=== PATIENT | female | born 1965 | race Caucasian/White ===

== ENCOUNTER 2017-12-25 09:27 | Day surgery (SDC) | payer OTHER ==
[~2017-12-25 09:27] MED LIST: ATROPINE 1 MG/10 ML SYRINGE IV; CEFAZOLIN 1 GM INJ; DIPHENHYDRAMINE 50 MG INJ IV; EPHEDrine SULFATE 50 MG/5 ML SYG IV; FENTAnyl 50 MCG/ML VIAL IV; HYDROmorphONE (0.2 MG/ML) 10ML SYG IV; LABETALOL HCL 20MG INJ IV; MEPERIDINE 25 MG INJ IV; MIDAZOLAM 1 MG/ML 2 ML INJ IV; ONDANSETRON 4 MG INJ IV; OXYCODONE/ACETAMINOPHEN (5/325) TAB PO; hydrALAzine 20 MG INJ IV; morphine (1 MG/ML) 10ML SYRINGE IV
[2017-12-25] MEDS ORDERED: PROPOFOL 20 ML (10:30)
[2017-12-25] MEDS ORDERED: GLYCOPYRROLATE 0.4 MG INJ (10:30)
[2017-12-25] MEDS ORDERED: NEOSTIGMINE 3 MG/3 ML SYRINGE (10:30)
[2017-12-25] MEDS ORDERED: ROCURONIUM 50 MG INJ (10:30)
[2017-12-25] MEDS ORDERED: LIDOCAINE 2% (SDV) 5 ML INJ (10:30)
[2017-12-25] MEDS ORDERED: FENTAnyl 50 MCG/ML VIAL (10:31)
[2017-12-25] MEDS ORDERED: MIDAZOLAM 1 MG/ML 2 ML INJ (10:31)
[2017-12-25] MEDS ORDERED: ONDANSETRON 4 MG INJ (10:31)
[2017-12-25] MEDS ORDERED: DEXAMETHASONE 4 MG/ML 1 ML INJ ×2 (10:31→11:22)
[2017-12-25] MEDS: BUPIVACAINE 0.5% (SDV) 30 ML INJ (12:16)
[2017-12-25] MEDS: POVIDONE IODINE 10% 28.4 GM OINT (12:25)
== END 2017-12-25 14:50 | disposition home or self-care (01) ==
LOC: SDS 09:27
DX: D21.21 Benign neoplasm of connective and other soft tissue of right lower limb, including hip (principal); Z87.891 Personal history of nicotine dependence
CPT/HCPCS: 28045; 88304